=== PATIENT | male | born 1940 | race Caucasian/White ===

== ENCOUNTER → 2017-07-13 | Outpatient (CLI) | payer BC ==
--- NOTE | 2017-07-13 12:48 | DIAGNOSTIC IMAGING REPORT ---
THREE-PHASE NUCLEAR BONE SCAN OF THE hips CLINICAL HISTORY: Hip pain. Bilateral hip arthroplasties. COMPARISON STUDY: No priors. TECHNIQUE: Following the IV administration of 26.8 mCi of technetium 99m MDP, three-phase bone scan of the hips was performed. Flow and blood pool phase imaging was performed both anteriorly and posteriorly. Bone phase imaging of the hips and bony pelvis was performed at three hours in multiple obliquities. Note that interpretation is suboptimal without plain film correlate. FINDINGS: There is no hyperemia identified in either hip on the flow or blood flow phase images. On the bone phase imaging there are photopenic defects consistent bilateral hip arthroplasties. No abnormal bone phase activity is identified. Specifically, there is no abnormal tracer deposition identified along the plasty stems to suggest loosening. Expected excreted activity seen in the bladder. IMPRESSION: Three-phase negative bone scan of the hips. See above. Electronically signed by: Ki Vizcaino M.D. 07/13/2017 12:46 PM Dictated Date/Time: 07/13/2017 12:41 PM
== END | disposition home or self-care (01) ==
LOC: C.NUCL 08:00
PROVIDERS: ATTEND Orthopaedic Surgery
DX: Z96.641 Presence of right artificial hip joint (principal); Z96.642 Presence of left artificial hip joint